=== PATIENT | female | born 1945 | race Caucasian/White ===

== ENCOUNTER 2024-10-18 17:27 | Inpatient (IN) | payer MEDICARE, MEDICAID ==
[2024-10-18] MEDS: Sodium Chloride 0.9% 500 ML IV ONE (19:10)
[2024-10-18 19:31] LABS: BASOPHILS ABSOLUTE AUTO 0.1 K/mm3 (0.0-0.2); BASOPHILS PERCENT AUTO 0.4 % (0.0-1.0); EOSINOPHILS PERCENT AUTO 0.2 % (0.0-6.0); HEMATOCRIT 40.6 % (37.0-47.0); HEMOGLOBIN 13.2 gm/dl (12.0-16.0); IMMATURE GRAN ABSOLUTE AUTO 0.17 K/mm3 (0.00-0.05); IMMATURE GRAN PERCENT AUTO 1.4 % (0.0-0.4); LYMPHOCYTES ABSOLUTE AUTO 1.7 K/mm3 (1.0-4.8); LYMPHOCYTES PERCENT AUTO 13.7 % (24.0-44.0); MEAN CORPUSCULAR HEMOGLOBIN 30.3 pg (28.0-32.0); MEAN CORPUSCULAR HGB CONC 32.5 g/dl (32.0-36.0); MEAN CORPUSCULAR VOLUME 93.1 fl (83.0-99.0); MEAN PLATELET VOLUME 10.1 fl (9.4-12.3); MONOCYTES ABSOLUTE AUTO 0.8 K/mm3 (0.0-0.8); MONOCYTES PERCENT AUTO 6.2 % (0.0-8.0); NEUTROPHILS ABSOLUTE AUTO 9.5 K/mm3 (1.8-7.7); NEUTROPHILS PERCENT AUTO 78.1 % (41.0-71.0); PLATELET COUNT,PLT 238 K/mm3 (150-400); RED BLOOD CELL COUNT 4.36 M/mm3 (4.10-5.30); WHITE BLOOD CELL COUNT,WBC 12.16 K/mm3 (3.9-11.3)
[2024-10-18 20:00] LABS: A/G RATIO 0.5 (1-2); ALANINE AMINOTRANSFERASE,ALT 13 U/L (14-59); ALBUMIN 2.3 g/dl (3.4-5.0); ALKALINE PHOSPHATASE 133 U/L (46-116); ANION GAP 15.7 (5-15); ASPARTATE AMNIOTRANSFERASE,AST 20 U/L (15-37); BILIRUBIN TOTAL 0.3 mg/dL (0.2-1.0); BLOOD UREA NITROGEN,BUN 19 mg/dL (7-18); BUN/CREATININE RATIO 17.3 (14-18); CARBON DIOXIDE,CO2 22 mEq/L (21-32); CHLORIDE,CL 105 mEq/L (98-107); CREATINE KINASE,CK 34 U/L (26-192); CREATININE 1.1 mg/dL (0.55-1.02); ESTIMATED GFR 52 mL/min (>60); GLUCOSE RANDOM 96 mg/dL (70-99); LIPASE 15 U/L (16-77); MAGNESIUM 1.9 mg/dL (1.8-2.4); POTASSIUM,K 4.7 mEq/L (3.5-5.1); PROTEIN TOTAL,TP 6.7 g/dl (6.4-8.2); SODIUM,NA 138 mEq/L (136-145); TROPONIN I HIGH SENSITIVITY 10 pg/mL (<=51)
[2024-10-18] MEDS ORDERED: Ondansetron 4 MG/2 ML SDV IVPUSH PRN (20:43)
[2024-10-18] MEDS: Sodium Chloride 0.9% 1,000 ML IV SCH (21:19)
[2024-10-19 01:23] LABS: APPEARANCE,URINE SLT CLOUDY (Clear); BILIRUBIN,URINE 1+ (Negative); COLOR,URINE YELLOW (Yellow); GLUCOSE,URINE NEGATIVE (Negative); KETONES,URINE 2+ (Negative); LEUKOCYTE ESTERASE,URINE NEGATIVE (Negative); NITRITE,URINE NEGATIVE (Negative); OCCULT BLOOD,URINE TRACE-INTACT (Negative); PH,URINE 5.5 (5.0-8.0); PROTEIN,URINE 1+ (Negative); UROBILINOGEN,URINE 0.2 (0.2-1.0)
[2024-10-19 01:40] LABS: BACTERIA,URINE FEW /hpf (FEW); EPITHELIAL CELLS,URINE 20-30 /hpf (0-5); MUCUS,URINE NOT SEEN /hpf (FEW); RBC,URINE 0-5 /hpf (0-5)
[2024-10-19] MEDS: VANCOmycin 125 MG Cap PO SCH (08:09)
[2024-10-19] MEDS: Levothyroxine 100 MCG Tab PO SCH (09:21)
[2024-10-19] MEDS: Enoxaparin 40 MG/0.4 ML Syringe SUBCUT SCH (09:21)
[2024-10-19] MEDS: Aspirin 81 MG Tab.EC PO SCH (09:21)
[2024-10-19] MEDS: Cholecalciferol (Vitamin D3) 25 MCG Tab PO SCH (09:21)
[2024-10-19] MEDS: Formoterol/Mometasone 200-5 MCG 8.8 GM Inhaler INH SCH (12:33)
[2024-10-19 18:25] LABS: PHOSPHORUS 3.8 mg/dL (2.6-4.7); TSH 2.662 uIU/mL (0.358-3.74)
[2024-10-19] MEDS: atorvaSTATin 40 MG Tab PO SCH (19:34)
[2024-10-19] MEDS: Latanoprost 0.005% Ophth Soln 2.5 ML Bottle EYERT SCH (19:34)
[2024-10-19] MEDS: levETIRAcetam 500 MG Tab PO SCH (19:34)
[2024-10-19] MEDS: Acetaminophen 325 MG Tab PO PRN (20:24)
[2024-10-19] MEDS: Diclofenac Sodium 1% Gel 100 GM Tube TOP PRN (21:57)
[2024-10-20] MEDS: Pantoprazole 40 MG Tab.CR PO SCH (06:03)
[2024-10-20] MEDS: Levothyroxine 112 MCG Tab PO SCH (06:03)
[2024-10-20 06:11] LABS: BASOPHILS PERCENT AUTO 0.3 % (0.0-1.0); EOSINOPHILS ABSOLUTE AUTO 0.2 K/mm3 (0.0-0.4); EOSINOPHILS PERCENT AUTO 2.2 % (0.0-6.0); IMMATURE GRAN PERCENT AUTO 1.1 % (0.0-0.4); LYMPHOCYTES ABSOLUTE AUTO 1.7 K/mm3 (1.0-4.8); LYMPHOCYTES PERCENT AUTO 18.1 % (24.0-44.0); MEAN CORPUSCULAR HEMOGLOBIN 30.5 pg (28.0-32.0); MEAN CORPUSCULAR HGB CONC 32.6 g/dl (32.0-36.0); MEAN CORPUSCULAR VOLUME 93.4 fl (83.0-99.0); MEAN PLATELET VOLUME 9.6 fl (9.4-12.3); MONOCYTES ABSOLUTE AUTO 0.6 K/mm3 (0.0-0.8); MONOCYTES PERCENT AUTO 6.2 % (0.0-8.0); NEUTROPHILS ABSOLUTE AUTO 6.7 K/mm3 (1.8-7.7); NEUTROPHILS PERCENT AUTO 72.1 % (41.0-71.0); RED BLOOD CELL COUNT 3.64 M/mm3 (4.10-5.30); WHITE BLOOD CELL COUNT,WBC 9.25 K/mm3 (3.9-11.3)
[2024-10-20 06:15] LABS: HEMOGLOBIN 11.1 gm/dl (12.0-16.0); PLATELET COUNT,PLT 335 K/mm3 (150-400)
[2024-10-20] MEDS ORDERED: Enoxaparin 40 MG/0.4 ML Syringe SUBCUT SCH (09:00)
[2024-10-20 10:19] LABS: A/G RATIO 0.5 (1-2); ALBUMIN 1.9 g/dl (3.4-5.0); ANION GAP 15.1 (5-15); BILIRUBIN TOTAL 0.4 mg/dL (0.2-1.0); BUN/CREATININE RATIO 23.3 (14-18); CALCIUM 8.3 mg/dL (8.5-10.1); CREATININE 0.6 mg/dL (0.55-1.02); EST CRCL DRUG DOSING (CG) 62.1 mL/min; MAGNESIUM 1.6 mg/dL (1.8-2.4); POTASSIUM,K 4.1 mEq/L (3.5-5.1); PROTEIN TOTAL,TP 5.5 g/dl (6.4-8.2)
[2024-10-21 05:59] LABS: BASOPHILS PERCENT AUTO 0.7 % (0.0-1.0); EOSINOPHILS ABSOLUTE AUTO 0.2 K/mm3 (0.0-0.4); EOSINOPHILS PERCENT AUTO 3.8 % (0.0-6.0); HEMATOCRIT 34.9 % (37.0-47.0); HEMOGLOBIN 11.4 gm/dl (12.0-16.0); IMMATURE GRAN ABSOLUTE AUTO 0.06 K/mm3 (0.00-0.05); LYMPHOCYTES ABSOLUTE AUTO 1.6 K/mm3 (1.0-4.8); LYMPHOCYTES PERCENT AUTO 27.6 % (24.0-44.0); MEAN CORPUSCULAR HEMOGLOBIN 30.3 pg (28.0-32.0); MEAN CORPUSCULAR HGB CONC 32.7 g/dl (32.0-36.0); MEAN CORPUSCULAR VOLUME 92.8 fl (83.0-99.0); MEAN PLATELET VOLUME 9.7 fl (9.4-12.3); MONOCYTES ABSOLUTE AUTO 0.5 K/mm3 (0.0-0.8); MONOCYTES PERCENT AUTO 9.1 % (0.0-8.0); NEUTROPHILS ABSOLUTE AUTO 3.3 K/mm3 (1.8-7.7); NEUTROPHILS PERCENT AUTO 57.8 % (41.0-71.0); PLATELET COUNT,PLT 321 K/mm3 (150-400); RED BLOOD CELL COUNT 3.76 M/mm3 (4.10-5.30); WHITE BLOOD CELL COUNT,WBC 5.72 K/mm3 (3.9-11.3)
[2024-10-21 06:27] LABS: A/G RATIO 0.5 (1-2); ALBUMIN 1.9 g/dl (3.4-5.0); ANION GAP 12.7 (5-15); BILIRUBIN TOTAL 0.3 mg/dL (0.2-1.0); BUN/CREATININE RATIO 23.3 (14-18); CALCIUM 8.2 mg/dL (8.5-10.1); CREATININE 0.6 mg/dL (0.55-1.02); EST CRCL DRUG DOSING (CG) 62.1 mL/min; MAGNESIUM 1.6 mg/dL (1.8-2.4); POTASSIUM,K 3.7 mEq/L (3.5-5.1); PROTEIN TOTAL,TP 5.5 g/dl (6.4-8.2)
[2024-10-21] MEDS: Acetaminophen 325 MG Tab PO SCH (08:55)
[2024-10-21] MEDS: Loperamide 2 MG Cap PO ONE (12:09)
[2024-10-21] MEDS: Sodium Chloride 0.9% 1,000 ML IV SCH (15:03)
[2024-10-22 06:05] LABS: BASOPHILS PERCENT AUTO 0.6 % (0.0-1.0); EOSINOPHILS ABSOLUTE AUTO 0.2 K/mm3 (0.0-0.4); EOSINOPHILS PERCENT AUTO 4.7 % (0.0-6.0); HEMATOCRIT 34.4 % (37.0-47.0); HEMOGLOBIN 11.2 gm/dl (12.0-16.0); IMMATURE GRAN ABSOLUTE AUTO 0.05 K/mm3 (0.00-0.05); LYMPHOCYTES ABSOLUTE AUTO 1.3 K/mm3 (1.0-4.8); LYMPHOCYTES PERCENT AUTO 26.5 % (24.0-44.0); MEAN CORPUSCULAR HEMOGLOBIN 30.4 pg (28.0-32.0); MEAN CORPUSCULAR HGB CONC 32.6 g/dl (32.0-36.0); MEAN CORPUSCULAR VOLUME 93.2 fl (83.0-99.0); MEAN PLATELET VOLUME 9.9 fl (9.4-12.3); MONOCYTES ABSOLUTE AUTO 0.5 K/mm3 (0.0-0.8); MONOCYTES PERCENT AUTO 9.1 % (0.0-8.0); NEUTROPHILS ABSOLUTE AUTO 2.9 K/mm3 (1.8-7.7); NEUTROPHILS PERCENT AUTO 58.1 % (41.0-71.0); PLATELET COUNT,PLT 309 K/mm3 (150-400); RED BLOOD CELL COUNT 3.69 M/mm3 (4.10-5.30); WHITE BLOOD CELL COUNT,WBC 4.94 K/mm3 (3.9-11.3)
[2024-10-22 06:30] LABS: A/G RATIO 0.6 (1-2); ALBUMIN 1.9 g/dl (3.4-5.0); ANION GAP 10.7 (5-15); BILIRUBIN TOTAL 0.3 mg/dL (0.2-1.0); CALCIUM 8.1 mg/dL (8.5-10.1); CREATININE 0.5 mg/dL (0.55-1.02); EST CRCL DRUG DOSING (CG) 74.52 mL/min; MAGNESIUM 1.6 mg/dL (1.8-2.4); POTASSIUM,K 3.7 mEq/L (3.5-5.1); PROTEIN TOTAL,TP 5.3 g/dl (6.4-8.2)
[2024-10-22] MEDS: Potassium Chloride 20 MEQ Tab.ER PO ONE (08:22)
[2024-10-22] MEDS: Magnesium Sulf/Wat 2 GM/50 mL 2 GM in Premix Bag 1 BAG IV ONE (08:23)
[2024-10-22] MEDS: Calcium Carbonate 500 MG Tab.Chew CHEW PRN ×2 (13:17→21:18)
[2024-10-23 05:43] LABS: ANION GAP 13.2 (5-15); BUN/CREATININE RATIO 18.3 (14-18); CALCIUM 8.4 mg/dL (8.5-10.1); CREATININE 0.6 mg/dL (0.55-1.02); EST CRCL DRUG DOSING (CG) 62.1 mL/min; MAGNESIUM 1.9 mg/dL (1.8-2.4); POTASSIUM,K 4.2 mEq/L (3.5-5.1)
[2024-10-23] MEDS: Levothyroxine 100 MCG Tab PO SCH (06:10)
[2024-10-23] MEDS: Magnesium Sulf/Wat 2 GM/50 mL 2 GM in Premix Bag 1 BAG IV ONE (08:38)
[2024-10-23] MEDS: Gabapentin 100 MG Cap PO SCH (14:00)
[2024-10-24] MEDS: traMADol 50 MG Tab PO PRN (10:40)
[2024-10-25] MEDS: oxyCODONE 5 MG Tab PO PRN (21:12)
[2024-10-25] MEDS: Gabapentin 300 MG Cap PO SCH (21:12)
[2024-10-27] MEDS: Melatonin 3 MG Tab PO PRN (21:09)
== END 2024-10-29 12:01 | DRG 372 ==
LOC: JD.ED 17:27 → JD.MS 20:41
PROVIDERS: ADMIT Family Medicine; ATTEND Family Medicine
DX: A04.72 Enterocolitis due to Clostridium difficile, not specified as recurrent (principal); I69.351 Hemiplegia and hemiparesis following cerebral infarction affecting right dominant side; N17.9 Acute kidney failure, unspecified; R62.7 Adult failure to thrive; Z66 Do not resuscitate; I10 Essential (primary) hypertension; K21.9 Gastro-esophageal reflux disease without esophagitis; E03.9 Hypothyroidism, unspecified; J44.9 Chronic obstructive pulmonary disease, unspecified; E78.5 Hyperlipidemia, unspecified; M25.511 Pain in right shoulder; F15.90 Other stimulant use, unspecified, uncomplicated; H54.7 Unspecified visual loss; F32.A Depression, unspecified; E66.9 Obesity, unspecified; R26.2 Difficulty in walking, not elsewhere classified; R53.81 Other malaise; I67.1 Cerebral aneurysm, nonruptured; E83.42 Hypomagnesemia; R73.03 Prediabetes; Z91.040 Latex allergy status; Z91.013 Allergy to seafood; Z91.048 Other nonmedicinal substance allergy status; Z79.51 Long term (current) use of inhaled steroids; Z68.36 Body mass index [BMI] 36.0-36.9, adult; Z79.82 Long term (current) use of aspirin; Z79.02 Long term (current) use of antithrombotics/antiplatelets; Z79.899 Other long term (current) drug therapy; Z90.89 Acquired absence of other organs; Z98.890 Other specified postprocedural states; Z87.891 Personal history of nicotine dependence; Z87.01 Personal history of pneumonia (recurrent); I69.322 Dysarthria following cerebral infarction
CPT/HCPCS: 36415; 74176; 80053; 82550; 83690; 83735; 83880; 84100; 84443; 84484; 85025; 87428; 93005; 99285; J7030; 73030-26-RT; 73030-RT; 80048; 81001; 87045; 87046; 87324; 87493; 87899; 93010; 94640; 94760; 94761; 97110-GP; 97161-GP; 97166-GO; 97530-GP; 99223; 99231; 99232; 99239; A9270-GY; J1650; J3475; U0002